=== PATIENT | female | born 1980 | race Caucasian/White ===

== ENCOUNTER 2022-03-24 12:21 | Emergency (ER) | payer OTHER ==
[~2022-03-24] VITALS: Ht 157.5 cm; Wt 103.2 kg
[~2022-03-24 12:21] MED LIST: IBUP-974 PO; PREN-234 PO
[2022-03-24 12:25] VITALS: BP 155/94
--- NOTE | 2022-03-24 12:30 | NUR ---
PT AMB TO BED 11.
--- NOTE | 2022-03-24 12:36 | NUR ---
41 Y/O FEMALE BIB SELF C/O LOWER ABDOMINAL PAIN X 1 WEEK. PAIN RATED 10/10. PT DENIES ALLEVIATING AND AGGREVATING FACTORS. ABDOMEN SLIGHTLY TENDER TO PALPATION. LUNGS CTA. DENIES DYSURIA/HEMATURIA. PT DENIES N,V,D. PT DENIES FEVER OR CHILLS. PMH: PCOS, HYSTERECTOMY
--- NOTE | 2022-03-24 12:42 | NUR ---
AT PT BEDSIDE
[2022-03-24] MEDS ORDERED: NACL 0.9% 1,000 ML IV ONE (12:45)
[2022-03-24] MEDS ORDERED: KETOROLAC 30 MG/ML VIAL IVP ONE (12:45)
--- NOTE | 2022-03-24 12:58 | NUR ---
PT TAKEN TO CT VIA WC
--- NOTE | 2022-03-24 13:00 | NUR ---
VAUGHN YADAV SWAB COLLECTED AND WALKED TO LAB
[2022-03-24 13:21] LABS: BASOPHILS % (AUTO) 0.4 % (0.0-2.0); EOSINOPHILS # (AUTO) 0.1 K/uL (0-0.4); EOSINOPHILS % (AUTO) 0.9 % (0.0-4.0); HEMATOCRIT 38.4 % (36-48); HEMOGLOBIN 13.1 g/dL (12.0-16.0); LYMPHOCYTES # (AUTO) 2.4 K/uL (2.5-16.5); LYMPHOCYTES % (AUTO) 22.6 % (20.5-51.1); MEAN CORPUSCULAR HEMOGLOBIN 29 pg (27-31); MEAN CORPUSCULAR HGB CONC 34 g/dL (33-37); MEAN CORPUSCULAR VOLUME 84.6 fL (80-94); MONOCYTES # (AUTO) 0.7 K/uL (0.8-1.0); MONOCYTES % (AUTO) 6.7 % (1.7-9.3); NEUTROPHILS # (AUTO) 7.5 K/uL (1.8-7.7); NEUTROPHILS % (AUTO) 69.4 % (42.2-75.2); PLATELET COUNT (AUTO) 256 K/uL (140-450); RED BLOOD CELL COUNT(AUTO) 4.54 MIL/uL (4.20-5.40); RED CELL DISTRIBUTION WIDTH 13.2 % (11.6-13.7); WHITE BLOOD COUNT (AUTO) 10.8 K/uL (4.8-10.8)
[2022-03-24 13:38] LABS: ALBUMIN 3.3 g/dL (3.4-5.0); CARBON DIOXIDE 26.7 mmol/L (21-32); CREATININE 0.7 mg/dL (0.6-1.3); POTASSIUM 3.7 mmol/L (3.5-5.1); TOTAL BILIRUBIN 0.2 mg/dL (0.0-1.0)
[2022-03-24] MEDS ORDERED: METR-520 PO (14:30)
[2022-03-24] MEDS ORDERED: CIPR500T4 PO (14:30)
[2022-03-24] MEDS ORDERED: ACET-10509 PO (14:30)
[2022-03-24] MEDS ORDERED: IBUP-2213 PO (14:30)
[2022-03-24 15:04] VITALS: BP 142/78
--- NOTE | 2022-03-24 15:25 | NUR ---
Patient discharged with v/s stable. Written and verbal after care instructions given and explained. Patient alert, oriented and verbalized understanding of instructions. Ambulatory with steady gait. All questions addressed prior to discharge. ID band removed. Patient advised to follow up with PMD. Rx of TYLENOL EXTRAN STRENGTH, CIPRO, IBUPROFEN, FLAGYL given. Patient educated on indication of medication including possible reaction and side effects. Opportunity to ask questions provided and answered.
== END 2022-03-24 15:25 | disposition home or self-care (01) ==
LOC: MED 12:21
DX: K57.92 Diverticulitis of intestine, part unspecified, without perforation or abscess without bleeding (principal); Z20.822 Contact with and (suspected) exposure to COVID-19; Z90.49 Acquired absence of other specified parts of digestive tract; Z79.899 Other long term (current) drug therapy; Z90.710 Acquired absence of both cervix and uterus; Z98.84 Bariatric surgery status
CPT/HCPCS: 36415; 74176; 80053; 81002; 81025; 83605; 83690; 85025; 87040; 87426; 96361; 96374; 99284; J1885; J7030

== ENCOUNTER 2022-11-02 10:27 | Emergency (ER) | payer OTHER ==
[~2022-11-02] VITALS: Ht 157.5 cm; Wt 104.1 kg
[~2022-11-02 10:27] MED LIST changes: +ACET-10509 PO; +CIPR500T4 PO; +IBUP-2213 PO; +METR-520 PO
[2022-11-02 10:35] VITALS: BP 126/59
--- NOTE | 2022-11-02 10:35 | NUR ---
WHEELCHAIR ASSISTED TO BED 7
--- NOTE | 2022-11-02 10:58 | NUR ---
MD MOTT AT BEDSIDE FOR EVALUATION
--- NOTE | 2022-11-02 10:58 | NUR ---
41YO FEMALE PT C/O TIGHT 07/15 RL BACK PAIN X1WEEK. REPORTS SUDDEN CONSTANT ONSET. PAIN AT MOST ON MOVEMENT W/ RADIATION TO R PELVIC. CENTRAL STERILE TECHNICIAN TO TOUCH. DENIES DYSURIA, RECENT INJURY OR RELIEF AFTER NORCO/TYLENOL/IBUPROFEN. NOTES S/S TO PREVIOUS GALLSTONES. PT AAOX4, WHEELCHAIR ASSISTED TO ROOM. HOB POSITIONED PER COMFORT. HX: DIABETES, PCOS, ARTHRITIS , HERNIATED DISC, PINCHED NERVE NKA
[2022-11-02] MEDS ORDERED: KETOROLAC 30 MG/ML VIAL IM ONE (11:05)
[2022-11-02] MEDS ORDERED: CYCLOBENZAPRINE 10 MG TAB PO ONE (11:05)
[2022-11-02 11:10] LABS: APPEARANCE,URINE CLEAR (CLEAR); BILIRUBIN,URINE NEGATIVE (NEGATIVE); BLOOD, URINE NEGATIVE (NEGATIVE); COLOR,URINE YELLOW (YELLOW); LEUKOCYTE ESTERASE ,URINE NEGATIVE (NEGATIVE); NITRITE, URINE NEGATIVE (NEGATIVE); UGLUCOSE NEGATIVE (NEGATIVE)
[2022-11-02 11:17] LABS: BASOPHILS % (AUTO) 0.6 % (0.0-2.0); EOSINOPHILS # (AUTO) 0.1 K/uL (0-0.4); EOSINOPHILS % (AUTO) 1.4 % (0.0-4.0); HEMATOCRIT 39.3 % (36-48); HEMOGLOBIN 13.2 g/dL (12.0-16.0); LYMPHOCYTES # (AUTO) 1.8 K/uL (2.5-16.5); LYMPHOCYTES % (AUTO) 29.2 % (20.5-51.1); MEAN CORPUSCULAR HEMOGLOBIN 28 pg (27-31); MEAN CORPUSCULAR HGB CONC 34 g/dL (33-37); MEAN CORPUSCULAR VOLUME 83.1 fL (80-94); MONOCYTES # (AUTO) 0.5 K/uL (0.8-1.0); MONOCYTES % (AUTO) 8.5 % (1.7-9.3); NEUTROPHILS # (AUTO) 3.7 K/uL (1.8-7.7); NEUTROPHILS % (AUTO) 60.3 % (42.2-75.2); PLATELET COUNT (AUTO) 266 K/uL (140-450); RED BLOOD CELL COUNT(AUTO) 4.73 MIL/uL (4.20-5.40); RED CELL DISTRIBUTION WIDTH 13.6 % (11.6-13.7); WHITE BLOOD COUNT (AUTO) 6.2 K/uL (4.8-10.8)
--- NOTE | 2022-11-02 11:36 | NUR ---
PT TAKEN TO CT VIA JULIA
[2022-11-02 11:39] LABS: ALBUMIN 3.3 g/dL (3.4-5.0); ANION GAP 8.8 (8-16); CARBON DIOXIDE 30.5 mmol/L (21-32); CREATININE 0.8 mg/dL (0.6-1.3); POTASSIUM 4.3 mmol/L (3.5-5.1); TOTAL BILIRUBIN 0.3 mg/dL (0.0-1.0)
--- NOTE | 2022-11-02 11:45 | NUR ---
PT BROUGHT BACK VIA JULIA
[2022-11-02 12:42] VITALS: BP 120/68
[2022-11-02] MEDS ORDERED: MORPHINE SULFATE 4 MG/ML SYR IM ONE (12:45)
[2022-11-02] MEDS ORDERED: CYCL-711 PO (12:47)
[2022-11-02] MEDS ORDERED: IBUP-2213 PO (12:48)
--- NOTE | 2022-11-02 13:22 | NUR ---
Patient discharged with v/s stable. Written and verbal after care instructions FOR LUMBAR SPRAIN given and explained. Patient alert, oriented and verbalized understanding of instructions. Ambulatory with steady gait. All questions addressed prior to discharge. ID band removed. Patient advised to follow up with PMD. Rx of FLEXERIL AND IBUPROFEN given. Opportunity to ask questions provided and answered.
--- NOTE | 2022-11-02 13:23 | NUR ---
The patient's care was reviewed and supervised by Cristina Treviño RN.
== END 2022-11-02 13:22 | disposition home or self-care (01) ==
LOC: MED 10:27
DX: S39.012A Strain of muscle, fascia and tendon of lower back, initial encounter (principal); R10.9 Unspecified abdominal pain; X58.XXXA Exposure to other specified factors, initial encounter; Y93.89 Activity, other specified; Y92.89 Other specified places as the place of occurrence of the external cause; Y99.8 Other external cause status
CPT/HCPCS: 36415; 74176; 80053; 81003; 81025; 85025; 96372; 99285; J1885; J2270

== ENCOUNTER 2022-11-21 04:19 | Emergency (ER) | payer OTHER ==
[~2022-11-21] VITALS: Ht 157.5 cm; Wt 103.4 kg
[~2022-11-21 04:19] MED LIST changes: +CYCL-711 PO
[2022-11-21 04:36] VITALS: BP 127/93
--- NOTE | 2022-11-21 05:00 | NUR ---
pt is at the bed 9
--- NOTE | 2022-11-21 05:02 | NUR ---
mode came in c/o abdominal pain, 05/15. Patient stated she "was in [place] [facility] two weeks ago for abdominal pain and gave PCP all documentation." Patient stated PCP referred her to GI doctor and Urologist due to kidney stone, and the next GI and Urology appointment is in December. Patient stated she "couldn't wait that long because of the pain." Med hx: Polycystic Ovary Syndrome, Diverticulitis SX Hx: cholecystectomy, x2, Cyst removal by thyroid gland x3, Hernia Repair, Gastric Sleeve,
[2022-11-21 05:30] LABS: BASOPHILS % (AUTO) 0.5 % (0.0-2.0); EOSINOPHILS # (AUTO) 0.1 K/uL (0-0.4); EOSINOPHILS % (AUTO) 2.1 % (0.0-4.0); HEMATOCRIT 38.5 % (36-48); HEMOGLOBIN 13.1 g/dL (12.0-16.0); LYMPHOCYTES # (AUTO) 2.3 K/uL (2.5-16.5); LYMPHOCYTES % (AUTO) 35.2 % (20.5-51.1); MEAN CORPUSCULAR HEMOGLOBIN 28 pg (27-31); MEAN CORPUSCULAR HGB CONC 34 g/dL (33-37); MEAN CORPUSCULAR VOLUME 82.7 fL (80-94); MONOCYTES # (AUTO) 0.6 K/uL (0.8-1.0); MONOCYTES % (AUTO) 8.8 % (1.7-9.3); NEUTROPHILS # (AUTO) 3.4 K/uL (1.8-7.7); NEUTROPHILS % (AUTO) 53.4 % (42.2-75.2); PLATELET COUNT (AUTO) 210 K/uL (140-450); RED BLOOD CELL COUNT(AUTO) 4.65 MIL/uL (4.20-5.40); RED CELL DISTRIBUTION WIDTH 13.8 % (11.6-13.7); WHITE BLOOD COUNT (AUTO) 6.4 K/uL (4.8-10.8)
[2022-11-21 05:41] LABS: APPEARANCE,URINE CLEAR (CLEAR); BILIRUBIN,URINE NEGATIVE (NEGATIVE); BLOOD, URINE NEGATIVE (NEGATIVE); COLOR,URINE YELLOW (YELLOW); LEUKOCYTE ESTERASE ,URINE NEGATIVE (NEGATIVE); NITRITE, URINE NEGATIVE (NEGATIVE); UGLUCOSE NEGATIVE (NEGATIVE)
[2022-11-21 06:01] LABS: ALBUMIN 3.8 g/dL (3.4-5.0); ANION GAP 12.1 (8-16); CARBON DIOXIDE 27.6 mmol/L (21-32); CREATININE 0.8 mg/dL (0.6-1.3); POTASSIUM 3.7 mmol/L (3.5-5.1); TOTAL BILIRUBIN 0.4 mg/dL (0.0-1.0)
[2022-11-21] MEDS ORDERED: KETOROLAC 60 MG/2 ML VIAL IM ONE (06:30)
[2022-11-21 09:30] VITALS: BP 124/85
--- NOTE | 2022-11-21 09:31 | NUR ---
pt to ct via devan
--- NOTE | 2022-11-21 11:30 | NUR ---
Patient discharged with v/s stable. Written and verbal after care instructions given and explained. Patient verbalized understanding. Ambulatory with steady gait. All questions addressed prior to discharge. Advised to follow up with PMD.
== END 2022-11-21 11:30 | disposition home or self-care (01) ==
LOC: MED 04:19
DX: R10.31 Right lower quadrant pain (principal); K57.90 Diverticulosis of intestine, part unspecified, without perforation or abscess without bleeding; M54.50 Low back pain, unspecified; N83.202 Unspecified ovarian cyst, left side; E11.9 Type 2 diabetes mellitus without complications; Z79.4 Long term (current) use of insulin; Z79.899 Other long term (current) drug therapy; Z90.49 Acquired absence of other specified parts of digestive tract; Z90.710 Acquired absence of both cervix and uterus; Z98.890 Other specified postprocedural states
CPT/HCPCS: 36415; 74177; 76830; 80053; 81003; 81025; 83690; 85025; 93976; 96372; 99285; J1885; Q0092; Q9967

== ENCOUNTER 2023-08-18 07:47 | Emergency (ER) | payer OTHER ==
[~2023-08-18] VITALS: Ht 157.5 cm; Wt 93.0 kg
[2023-08-18 08:15] VITALS: BP 117/89; PULSE 76; RESP 0; TEMP 98.2; O2SAT 21
[2023-08-18] MEDS ORDERED: KETOROLAC 30 MG/ML VIAL IM ONE (11:15)
[2023-08-18] MEDS ORDERED: NAPR-1704 PO (11:18)
[2023-08-18] MEDS ORDERED: GABA300C PO (11:18)
[2023-08-18] MEDS ORDERED: ACET-10509 PO (11:18)
[2023-08-18] MEDS ORDERED: FURO-572 PO (11:18)
[2023-08-18 11:45] VITALS: BP 118/80; PULSE 74; RESP 17; O2SAT 98
== END 2023-08-18 11:46 | disposition home or self-care (01) ==
LOC: MED 07:47
DX: E11.42 Type 2 diabetes mellitus with diabetic polyneuropathy (principal); R60.9 Edema, unspecified; Z79.4 Long term (current) use of insulin; Z79.899 Other long term (current) drug therapy
CPT/HCPCS: 73630; 82948; 93971; 96372; 99285; J1885